=== PATIENT | female | born 1990 | race African-American/Black ===

== ENCOUNTER 2016-11-14 09:43 | Emergency (ER) | payer MEDICAID ==
[~2016-11-14] VITALS: Ht 167.6 cm; Wt 90.0 kg
[2016-11-14] MEDS ORDERED: TRAM50TA3 PO (09:51)
[2016-11-14 11:53] LABS: HEMATOCRIT. 39.2 % (36.0-48.0); HEMOGLOBIN. 13.2 g/dL (12.0-16.0); MEAN CORPUSCULAR HEMOGLOBIN 31.6 pg (28.0-32.0); MEAN CORPUSCULAR VOLUME 93.6 fL (81.0-99.0); MEAN PLATELET VOLUME 9.6 fl (7.4-10.4); PLATELET 239 x1000/uL (130-400); RED BLOOD CELL COUNT 4.18 mill/uL (4.2-5.4); RED CELL DISTRIBUTION WIDTH 12.5 % (11.6-14.6)
[2016-11-14 12:08] LABS: CARBON DIOXIDE 28 mEq/L (21-32); CHLORIDE 106 mEq/L (98-107)
[2016-11-14] MEDS ORDERED: FAMOTIDINE 20MG TABLET PO ONE (12:15)
[2016-11-14 12:20] VITALS: BP 108/53
[2016-11-14 12:36] LABS: CLARITY URINE CLEAR (CLEAR); COLOR URINE YELLOW (YELLOW); GLUCOSE URINE NEGATIVE (NEGATIVE); KETONES URINE NEGATIVE (NEGATIVE); LEUKOCYTE ESTERASE URINE NEGATIVE (NEGATIVE); NITRITE URINE NEGATIVE (NEGATIVE); OCCULT BLOOD URINE NEGATIVE (NEGATIVE); PH URINE 5.5 (4.5-8.0); PROTEIN URINE NEGATIVE (NEGATIVE); SPECIFIC GRAVITY URINE 1.025 (1.005-1.030); UROBILINOGEN URINE 0.2 E.U./dL (0.2-1.0)
[2016-11-14 12:56] LABS: PLATELET ESTIMATE NORMAL
== END 2016-11-14 13:32 | disposition home or self-care (01) ==
LOC: ER 12:20
DX: R10.13 Epigastric pain (principal); J45.909 Unspecified asthma, uncomplicated; F12.10 Cannabis abuse, uncomplicated
CPT/HCPCS: 36415; 80053; 81003; 81025; 83690; 85025; 99284; Z7610

== ENCOUNTER 2017-01-25 12:12 | Emergency (ER) | payer MEDICAID ==
[~2017-01-25] VITALS: Ht 167.6 cm; Wt 91.0 kg
[~2017-01-25 12:12] MED LIST: TRAM50TA3 PO
[2017-01-25 12:18] VITALS: BP 114/61
== END 2017-01-25 14:49 | disposition left against medical advice (07) ==
LOC: ER 14:45
DX: R10.9 Unspecified abdominal pain (principal); Z53.21 Procedure and treatment not carried out due to patient leaving prior to being seen by health care provider

== ENCOUNTER 2017-02-07 06:51 | Emergency (ER) | payer MEDICAID ==
[~2017-02-07] VITALS: Ht 167.6 cm; Wt 91.0 kg
[2017-02-07] MEDS ORDERED: ACETAMINOPHEN 325MG TABLET PO STA (07:55)
[2017-02-07] MEDS ORDERED: MAGNESIUM/ALUMINUM HYDROXIDE/SIMETHICONE 30ML UDC PO STA (07:55)
[2017-02-07] MEDS ORDERED: ONDANSETRON 4MG ODT PO STA (07:55)
[2017-02-07 08:11] LABS: CLARITY URINE CLEAR (CLEAR); COLOR URINE YELLOW (YELLOW); GLUCOSE URINE NEGATIVE (NEGATIVE); KETONES URINE NEGATIVE (NEGATIVE); LEUKOCYTE ESTERASE URINE 1+ (NEGATIVE); NITRITE URINE NEGATIVE (NEGATIVE); OCCULT BLOOD URINE NEGATIVE (NEGATIVE); PH URINE 6.5 (4.5-8.0); PROTEIN URINE NEGATIVE (NEGATIVE); SPECIFIC GRAVITY URINE 1.021 (1.005-1.030); UROBILINOGEN URINE 0.2 E.U./dL (0.2-1.0)
[2017-02-07 08:27] LABS: BASOPHILS % 1.2 % (0.0-2.0); EOSINOPHILS % 5.5 % (0.0-5.0); HEMATOCRIT. 37.2 % (36.0-48.0); HEMOGLOBIN. 12.4 g/dL (12.0-16.0); MEAN CORPUSCULAR HEMOGLOBIN 31.5 pg (28.0-32.0); MEAN CORPUSCULAR VOLUME 94.3 fL (81.0-99.0); MEAN PLATELET VOLUME 9.5 fl (7.4-10.4); MONOCYTES % 10.9 % (2.0-8.0); NEUTROPHILS % 50.4 % (40.0-76.0); PLATELET 219 x1000/uL (130-400); RED BLOOD CELL COUNT 3.94 mill/uL (4.2-5.4); RED CELL DISTRIBUTION WIDTH 12.4 % (11.6-14.6)
[2017-02-07 08:32] LABS: CHLORIDE 107 mEq/L (98-107)
[2017-02-07 08:41] LABS: CARBON DIOXIDE 28 mEq/L (21-32)
[2017-02-07 11:11] VITALS: BP 98/46
== END 2017-02-07 11:15 | disposition home or self-care (01) ==
LOC: ER 06:51
DX: K80.50 Calculus of bile duct without cholangitis or cholecystitis without obstruction (principal); J45.909 Unspecified asthma, uncomplicated; F17.210 Nicotine dependence, cigarettes, uncomplicated; K76.0 Fatty (change of) liver, not elsewhere classified
CPT/HCPCS: 36415; 76705; 80053; 81001; 81025; 83690; 85025; 93005; 99285; Q0162; Z7610

== ENCOUNTER 2018-10-19 10:01 | Emergency (ER) | payer MEDICAID ==
[~2018-10-19] VITALS: Ht 167.6 cm; Wt 82.0 kg
[2018-10-19] MEDS ORDERED: SODIUM CHLORIDE 0.9% 1,000 ML IV ONE (10:48)
[2018-10-19] MEDS ORDERED: MORPHINE SULFATE 4 MG/ML CPJ (NOT FOR IM USE) IV STA (10:48)
[2018-10-19 11:00] LABS: BASOPHILS % 1.2 % (0.0-2.0); EOSINOPHILS % 4.4 % (0.0-5.0); HEMATOCRIT. 35.9 % (36.0-48.0); HEMOGLOBIN. 12.2 g/dL (12.0-16.0); LYMPHOCYTES % 18.3 % (20.0-50.0); MEAN CORPUSCULAR HEMOGLOBIN 32.3 pg (28.0-32.0); MEAN CORPUSCULAR VOLUME 95.3 fL (81.0-99.0); MEAN PLATELET VOLUME 9.4 fl (7.4-10.4); MONOCYTES % 8.1 % (2.0-8.0); PLATELET 229 x1000/uL (130-400); RED BLOOD CELL COUNT 3.77 mill/uL (4.2-5.4); RED CELL DISTRIBUTION WIDTH 12.2 % (11.6-14.6)
[2018-10-19 11:06] LABS: CHLORIDE 109 mEq/L (98-107)
[2018-10-19 11:07] LABS: PROTHROMBIN TIME 10.3 sec (9.6-11.0)
[2018-10-19 13:06] LABS: CLARITY URINE CLOUDY (CLEAR); COLOR URINE YELLOW (YELLOW); KETONES URINE NEGATIVE (NEGATIVE); LEUKOCYTE ESTERASE URINE 2+ (NEGATIVE); NITRITE URINE NEGATIVE (NEGATIVE); OCCULT BLOOD URINE NEGATIVE (NEGATIVE); PROTEIN URINE NEGATIVE (NEGATIVE); SPECIFIC GRAVITY URINE 1.022 (1.005-1.030); UROBILINOGEN URINE 0.2 E.U./dL (0.2-1.0)
[2018-10-19 14:27] VITALS: BP 92/58
== END 2018-10-19 14:29 | disposition home or self-care (01) ==
LOC: ER 10:01
DX: K80.50 Calculus of bile duct without cholangitis or cholecystitis without obstruction (principal); J45.909 Unspecified asthma, uncomplicated
CPT/HCPCS: 36415; 76705; 80053; 81003; 83690; 85025; 85610; 96374; 99284; J2270; J7030; Z7610

== ENCOUNTER 2020-11-17 00:29 | Emergency (ER) | payer SELFPAY ==
[~2020-11-17] VITALS: Ht 167.6 cm; Wt 87.0 kg
[2020-11-17] MEDS ORDERED: HYDROCODONE/ACETAMINOPHEN 5/325MG TABLET PO ONE (01:15)
[2020-11-17] MEDS ORDERED: KETOROLAC 30MG/ML VIAL IM ONE (01:15)
[2020-11-17] MEDS ORDERED: LIDOCAINE HCL/EPINEPHRINE 1%-EPI 1:100,000 20 ML VIAL INFIL NR (02:15)
[2020-11-17] MEDS ORDERED: BACITRACIN ZINC OINT UDPKT TOP ONE (02:15)
[2020-11-17] MEDS ORDERED: LIDOCAINE HCL/EPINEPHRINE 1%-EPI 1:100,000 10 ML VIAL IJ ONE (02:15)
[2020-11-17] MEDS ORDERED: T3 PO (02:33)
[2020-11-17] MEDS ORDERED: AMOX-424 MT (02:33)
[2020-11-17 03:10] VITALS: BP 157/81
== END 2020-11-17 03:10 | disposition home or self-care (01) ==
LOC: ER 00:29
DX: K04.7 Periapical abscess without sinus (principal); J45.909 Unspecified asthma, uncomplicated
CPT/HCPCS: 10060; 81025; 96372; 99283; J1885; J3490

== ENCOUNTER 2021-05-11 13:05 | Emergency (ER) | payer MEDICAID ==
[~2021-05-11] VITALS: Ht 167.6 cm; Wt 96.0 kg
[~2021-05-11 13:05] MED LIST changes: +AMOX-424 MT; +T3 PO
[2021-05-11] MEDS ORDERED: IPRATROPIUM BROMIDE (0.02%) 0.5MG/2.5ML NEB HHN STA (13:10)
[2021-05-11] MEDS ORDERED: PREDNISONE 20MG TABLET PO ONE (13:15)
[2021-05-11] MEDS: ALBUTEROL (0.083%) 2.5MG/3ML NEB HHN SCH ×3 (13:52→14:52)
[2021-05-11] MEDS ORDERED: P50 MT (15:25)
[2021-05-11] MEDS ORDERED: ALBU6.7H9 INH (15:25)
[2021-05-11 16:25] VITALS: BP 133/85
== END 2021-05-11 16:26 | disposition home or self-care (01) ==
LOC: ER 13:05
DX: J45.901 Unspecified asthma with (acute) exacerbation (principal); Z87.19 Personal history of other diseases of the digestive system; Z79.899 Other long term (current) drug therapy; F17.290 Nicotine dependence, other tobacco product, uncomplicated
CPT/HCPCS: 93005; 94640; 99285; 99406; J7512; Z7610

== ENCOUNTER 2021-08-20 05:59 | Emergency (ER) | payer MEDICAID ==
[~2021-08-20] VITALS: Ht 167.6 cm; Wt 91.0 kg
[~2021-08-20 05:59] MED LIST changes: +ALBU6.7H9 INH; +P50 MT
[2021-08-20] MEDS ORDERED: ACETAMINOPHEN 325MG TABLET PO STA (06:26)
[2021-08-20 06:28] VITALS: BP 136/70
[2021-08-20 06:51] LABS: HEMATOCRIT. 35.5 % (36.0-48.0); MEAN CORPUSCULAR HEMOGLOBIN 31.7 pg (28.0-32.0); MEAN CORPUSCULAR VOLUME 93.9 fL (81.0-99.0); MEAN PLATELET VOLUME 9.8 fl (7.4-10.4); PLATELET 250 x1000/uL (130-400); RED BLOOD CELL COUNT 3.78 mill/uL (4.2-5.4); RED CELL DISTRIBUTION WIDTH 12.2 % (11.6-14.6)
[2021-08-20 06:52] LABS: CHLORIDE 107 mEq/L (98-107)
[2021-08-20 06:57] LABS: CLARITY URINE CLOUDY (CLEAR); COLOR URINE YELLOW (YELLOW); KETONES URINE NEGATIVE (NEGATIVE); LEUKOCYTE ESTERASE URINE 1+ (NEGATIVE); NITRITE URINE NEGATIVE (NEGATIVE); OCCULT BLOOD URINE NEGATIVE (NEGATIVE); PH URINE 6.5 (4.5-8.0); PROTEIN URINE NEGATIVE (NEGATIVE); SPECIFIC GRAVITY URINE 1.012 (1.005-1.030); UROBILINOGEN URINE 0.2 E.U./dL (0.2-1.0)
[2021-08-20 07:15] LABS: B-HCG QUANTITATIVE 30197 mIU/mL (<3)
[2021-08-20] MEDS ORDERED: TOPUD PO (08:13)
[2021-08-20 10:00] LABS: PLATELET ESTIMATE NORMAL
== END 2021-08-20 08:42 | disposition home or self-care (01) ==
LOC: ER 05:59
DX: O20.0 Threatened abortion (principal); O99.611 Diseases of the digestive system complicating pregnancy, first trimester; K80.20 Calculus of gallbladder without cholecystitis without obstruction; Z3A.01 Less than 8 weeks gestation of pregnancy
CPT/HCPCS: 36415; 76705; 76801; 80053; 81003; 81025; 84702; 85025; 86850; 86900; 99284

== ENCOUNTER 2021-09-11 08:37 | Emergency (ER) | payer MEDICAID ==
[~2021-09-11] VITALS: Ht 167.6 cm; Wt 96.0 kg
[~2021-09-11 08:37] MED LIST changes: +TOPUD PO
[2021-09-11] MEDS ORDERED: DEXAMETHASONE 4MG TABLET PO ONE (09:00)
[2021-09-11] MEDS ORDERED: PENI500T MT (09:06)
[2021-09-11] MEDS ORDERED: IBUP-2029 MT (09:06)
[2021-09-11] MEDS ORDERED: IBUPROFEN 600MG TABLET PO ONE (09:15)
[2021-09-11 09:22] VITALS: BP 116/75
== END 2021-09-11 09:23 | disposition home or self-care (01) ==
LOC: ER 08:37
DX: J02.9 Acute pharyngitis, unspecified (principal); J45.909 Unspecified asthma, uncomplicated
CPT/HCPCS: 87070; 87430; 99283; J8540

== ENCOUNTER 2021-09-21 00:19 | Emergency (ER) | payer MEDICAID ==
[~2021-09-21] VITALS: Ht 172.7 cm; Wt 82.0 kg
[~2021-09-21 00:19] MED LIST changes: +IBUP-2029 MT; +PENI500T MT
[2021-09-21] MEDS ORDERED: MORPHINE SULFATE 4 MG/ML CPJ (NOT FOR IM USE) IV STA (00:59)
[2021-09-21] MEDS ORDERED: MAGNESIUM/ALUMINUM HYDROXIDE/SIMETHICONE 30ML UDC PO STA (00:59)
[2021-09-21] MEDS ORDERED: ONDANSETRON HCL 4MG/2ML INJ IV STA (00:59)
[2021-09-21] MEDS ORDERED: SODIUM CHLORIDE 0.9% 1,000 ML IV ONE (01:00)
[2021-09-21 02:14] LABS: EOSINOPHILS % 3.9 % (0.0-5.0); HEMATOCRIT. 37.7 % (36.0-48.0); HEMOGLOBIN. 12.6 g/dL (12.0-16.0); LYMPHOCYTES % 23.5 % (20.0-50.0); MEAN CORPUSCULAR HEMOGLOBIN 30.9 pg (28.0-32.0); MEAN CORPUSCULAR VOLUME 92.3 fL (81.0-99.0); MEAN PLATELET VOLUME 9.8 fl (7.4-10.4); MONOCYTES % 5.8 % (2.0-8.0); NEUTROPHILS % 65.8 % (40.0-76.0); PLATELET 278 x1000/uL (130-400); RED BLOOD CELL COUNT 4.09 mill/uL (4.2-5.4); RED CELL DISTRIBUTION WIDTH 12.5 % (11.6-14.6)
[2021-09-21 02:22] LABS: *AMPHETAMINES SCREEN URINE NEGATIVE (NEGATIVE); *BENZODIAZEPINES SCREEN URINE NEGATIVE (NEGATIVE); METHADONE URINE SCREEN NEGATIVE (NEGATIVE)
[2021-09-21 02:23] LABS: *BARBITURATES SCREEN URINE NEGATIVE (NEGATIVE); OPIATES URINE SCREEN NEGATIVE (NEGATIVE); PHENCYCLIDINE URINE SCREEN NEGATIVE (NEGATIVE)
[2021-09-21 02:27] LABS: *COCAINE SCREEN URINE PRESUMTIVE POSITIVE (NEGATIVE); CANNABINOID URINE SCREEN PRESUMTIVE POSITIVE (NEGATIVE)
[2021-09-21 02:34] LABS: CHLORIDE 103 mEq/L (98-107)
[2021-09-21 02:35] LABS: HCG SCREEN POSITIVE
[2021-09-21 02:38] LABS: ETHANOL BLOOD < 10 mg/dL
[2021-09-21] MEDS ORDERED: MORPHINE SULFATE 4 MG/ML CPJ (NOT FOR IM USE) IV ONE (05:45)
[2021-09-21 06:40] VITALS: BP 132/65
== END 2021-09-21 06:41 | disposition home or self-care (01) ==
LOC: ER 00:19
DX: O99.611 Diseases of the digestive system complicating pregnancy, first trimester (principal); K80.20 Calculus of gallbladder without cholecystitis without obstruction; Z3A.13 13 weeks gestation of pregnancy
CPT/HCPCS: 36415; 76705; 76801; 80053; 80305; 80320; 81025; 83690; 84703; 85025; 96361; 96374; 96375; 96376; 99285; J2270; J2405; J7030; G0480

== ENCOUNTER 2022-06-19 02:48 | Emergency (ER) | payer MEDICAID ==
[~2022-06-19] VITALS: Ht 165.1 cm; Wt 97.0 kg
[~2022-06-19 02:48] MED LIST changes: +ALBU6.7H3 INH; -ALBU6.7H9 INH
[2022-06-19] MEDS ORDERED: LIDOCAINE HCL/EPINEPHRINE 1%-EPI 1:100,000 20 ML VIAL INFIL ONE (08:00)
[2022-06-19] MEDS ORDERED: LIDOCAINE HCL/EPINEPHRINE 1%-EPI 1:100,000 10 ML VIAL INFIL SCH (08:15)
[2022-06-19] MEDS ORDERED: IBUP-2030 PO (08:18)
[2022-06-19] MEDS ORDERED: AMOX1TAB16 PO (08:18)
[2022-06-19 08:43] VITALS: BP 114/85
== END 2022-06-19 08:44 | disposition home or self-care (01) ==
LOC: ER 02:54
DX: K04.7 Periapical abscess without sinus (principal); J45.909 Unspecified asthma, uncomplicated; Z79.899 Other long term (current) drug therapy
CPT/HCPCS: 10060; 99283; Z7610; J3490